=== PATIENT | male | born 1955 | race American Indian/Alaskan Native ===

== ENCOUNTER 2017-01-11 20:34 | Observation (INO) | payer MEDICAID, OTHER ==
[2017-01-11 20:34] VITALS: BMI 24.3
[2017-01-11] MEDS ORDERED: Aspirin 325 mg EC Tablets PO STA (21:20)
[2017-01-11] MEDS ORDERED: Albuterol-Ipratrop 3 mg / 0.5 (3 ml) UD IH STA (21:21)
[2017-01-11] MEDS ORDERED: Aspirin 325 mg EC Tablets PO ONE (21:30)
[2017-01-11] MEDS ORDERED: Albuterol-Ipratrop 3 mg / 0.5 (3 ml) UD ONE (21:30)
[2017-01-11 21:38] LABS: EOS # 0.3 K/uL (0.0-0.7); EOS % 5.6 % (0.0-4.0); HEMATOCRIT 49.5 % (35.0-51.0); LYMPH # 1.7 K/uL (1.0-4.3); LYMPH % 35.9 % (20.0-40.0); MEAN CELL VOLUME 97.3 fL (80.0-94.0); MEAN CORPUSCULAR HEMOGLOBIN 32.7 pg (27.0-31.0); MEAN CORPUSCULAR HGB CONC 33.7 g/dL (33.0-37.0); MEAN PLATELET VOLUME 7.7 fL (7.2-11.7); MONO # 0.4 K/uL (0.0-0.8); MONO % 9.1 % (0.0-10.0); NRBC % 0.1 % (0.0-2.0); RED CELL DISTRIBUTION WIDTH 12.3 % (11.5-14.5); WHITE BLOOD COUNT 4.7 K/uL (4.8-10.8)
[2017-01-11 21:41] LABS: INR 1.2
[2017-01-11 22:28] LABS: ALKALINE PHOSPHATASE 93 U/L (38-126); ALT/SGPT 94 U/L (21-72); AST/SGOT 103 U/L (17-59); BILIRUBIN,TOTAL 1.9 mg/dL (0.2-1.3); BLOOD UREA NITROGEN 8 mg/dL (9-20); CALCIUM 8.5 mg/dl (8.6-10.4); CARBON DIOXIDE 29 mmol/L (22-30); CHLORIDE 93 mmol/L (98-107); GFR AFRICAN-AMERICAN > 60; GLUCOSE,RANDOM 122 mg/dL (75-110); MAGNESIUM 1.5 mg/dL (1.6-2.3); POTASSIUM 4.7 mmol/L (3.6-5.2); SODIUM 130 mmol/L (132-148); TOTAL PROTEIN 8.5 g/dL (6.3-8.3)
[2017-01-11 22:32] LABS: ALB/GLOB RATIO 0.8 (1.0-2.1)
[2017-01-11] MEDS ORDERED: Magnesium Sulfate 1 gm in D5W 1 GM/100 ML BAG IVPB ONE ×2 (22:56→23:00)
--- NOTE | 2017-01-11 23:13 | C.PDOC ---
Time Seen by Provider: 01/11/17 21:10 Chief Complaint (Nursing): Chest Pain History Per: Patient Onset/Duration Of Symptoms: Hrs (1) Current Symptoms Are (Timing): Better Severity: Moderate Quality: "Pain" Associated Symptoms: Dyspnea Modifying Factors: Other Indicated Below Exacerbating Factors: Exertion Alleviating Factors: None Additional History Per: Prior Records Past Medical History Reviewed: Historical Data, Nursing Documentation, Vital Signs Vital Signs: Last Vital Signs Temp 97.6 F 01/11/17 20:47 Pulse 80 01/11/17 22:33 Resp 17 01/11/17 22:33 BP 137/86 01/11/17 22:33 Pulse Ox 94 L 01/11/17 23:14 - Medical History PMH: Asthma, CAD, COPD (ASTHMA), Emphysema, Fractures, Gall Bladder Disease, HTN , Pneumonia Surgical History: Cholecystectomy (07/29/14), Coronary Stent (2 stents) - [facility] Procedures INJECT/INFUSE NEC (06/22/13) LAPAROSCOPIC CHOLECYSTECTOMY (07/29/14) NEBULIZER THERAPY (06/22/13) OTHER OPEN UMBILICAL HERNIORRHAPHY (07/29/14) VITAL CAPACITY DETERMIN (06/22/13) Family History: States: Unknown Family Hx - Social History Hx Tobacco Use: Yes Hx Alcohol Use: Yes Hx Substance Use: Yes - Immunization History Hx Tetanus Toxoid Vaccination: Yes Hx Influenza Vaccination: Yes Hx Pneumococcal Vaccination: Yes Review Of Systems Except As Marked, All Systems Reviewed And Found Negative. Constitutional: Negative for: Fever, Weakness Cardiovascular: Positive for: Chest Pain Respiratory: Positive for: Cough, Shortness of Breath. Negative for: Hemoptysis Gastrointestinal: Positive for: Nausea. Negative for: Vomiting, Abdominal Pain Musculoskeletal: Negative for: Neck Pain, Back Pain, Leg Pain Skin: Negative for: Rash Neurological: Negative for: Weakness, Numbness, Seizures Physical Exam - Physical Exam Appears: Non-toxic, No Acute Distress Skin: Normal Color, Warm, Dry, No Rash Head: Atraumatic, Normacephalic Eye(s): bilateral: PERRL, EOMI Neck: Normal ROM, Supple Cardiovascular: Rhythm Regular Respiratory: Normal Breath Sounds, No Accessory Muscle Use Gastrointestinal/Abdominal: Soft, No Tenderness Back: No CVA Tenderness Extremity: Normal ROM, No Pedal Edema, No Calf Tenderness Neurological/Psych: Oriented x3, Normal Motor, Normal Sensation ED Course And Treatment - Laboratory Results Result Diagrams: 01/11/17 21:28 01/11/17 21:28 ECG: Interpreted By Me, Viewed By Me ECG Rhythm: Sinus Rhythm, Nonspecific Changes ECG Interpretation: No Changes From Prior Interpretation Of ECG: Q waves in inferior leads. Rate From EC O2 Sat by Pulse Oximetry: 94 Pulse Ox Interpretation: Other Interpretation Of Abnormal: borderline - Radiology CXR: Interpreted by Me, Viewed By Me CXR Interpretation: Yes: No Acute Disease - Physician Consult Information Physician Contacted: Sandra Bhagat (Cardio) Outcome Of Conversation: He will consult. Progress - Interventions Interventions:: Observation, Intravenous fluid, Oxygen - Medications Administered Oral: Aspirin Inhaled nebulized: Anticholinergic, Beta-2 agonist Intravenous: Other (Mg) - Data Reviewed Data Reviewed: Lab, Diagnostic imaging, EKG, Old records - Patient Status Patient status: Partially improved - Continuity of Care Discussed patient case with:: Patient, ED Nurse, On-call PMD-pt unassigned Discussed pt. case with cleaning validation consultant/specialty: Cardiology Disposition Discussed With : Nita Riddle Comment: She accepted pt on her service. Doctor Will See Patient In The: Hospital Counseled Patient/Family Regarding: Studies Performed, Diagnosis, Smoking Cessation - Disposition Disposition: HOSPITALIZED Disposition Time: 23:35 Condition: FAIR - Clinical Impression Clinical Impression: Chest pain, rule out acute myocardial infarction, COPD (chronic obstructive pulmonary disease), CAD (coronary artery disease)
[2017-01-12 04:23] LABS: BASO % 0.9 % (0.0-2.0); EOS # 0.4 K/uL (0.0-0.7); EOS % 8.5 % (0.0-4.0); HEMATOCRIT 45.4 % (35.0-51.0); LYMPH # 1.6 K/uL (1.0-4.3); LYMPH % 32.7 % (20.0-40.0); MEAN CELL VOLUME 96.6 fL (80.0-94.0); MEAN CORPUSCULAR HEMOGLOBIN 32.6 pg (27.0-31.0); MEAN CORPUSCULAR HGB CONC 33.7 g/dL (33.0-37.0); MEAN PLATELET VOLUME 7.4 fL (7.2-11.7); MONO # 0.5 K/uL (0.0-0.8); MONO % 10.4 % (0.0-10.0); NRBC % 0.3 % (0.0-2.0); RED CELL DISTRIBUTION WIDTH 12.3 % (11.5-14.5)
[2017-01-12 04:53] LABS: ALB/GLOB RATIO 0.8 (1.0-2.1); ALKALINE PHOSPHATASE 92 U/L (38-126); ALT/SGPT 93 U/L (21-72); AST/SGOT 82 U/L (17-59); BILIRUBIN,TOTAL 1.7 mg/dL (0.2-1.3); BLOOD UREA NITROGEN 9 mg/dL (9-20); CALCIUM 7.5 mg/dl (8.6-10.4); CARBON DIOXIDE 30 mmol/L (22-30); CHLORIDE 92 mmol/L (98-107); CHOLESTEROL 118 mg/dL (0-199); GFR AFRICAN-AMERICAN > 60; GLUCOSE,RANDOM 98 mg/dL (75-110); POTASSIUM 4.5 mmol/L (3.6-5.2); SODIUM 126 mmol/L (132-148); TOTAL PROTEIN 7.6 g/dL (6.3-8.3)
[2017-01-12 05:56] LABS: THYROID STIMULATING HORMONE 4.42 mIU/L (0.46-4.68)
--- NOTE | 2017-01-12 08:54 | RAD ---
HISTORY: SOB, CP COMPARISON: Chest x-ray performed 12/15/15 TECHNIQUE: Chest, one view. FINDINGS: LUNGS: Increased lucencies especially within the bilateral upper lung castro compatible with underlying emphysema. No focal consolidation. Please note that chest x-ray has limited sensitivity for the detection of pulmonary masses. PLEURA: No significant pleural effusion identified. No definite pneumothorax . CARDIOVASCULAR: Heart size appears within normal limits. OSSEOUS STRUCTURES: Mild degenerative changes. VISUALIZED UPPER ABDOMEN: Unremarkable. OTHER FINDINGS: None. IMPRESSION: No focal consolidation, significant pleural effusion, or definite pneumothorax identified.
--- NOTE | 2017-01-12 09:58 | US ---
HISTORY: abnormal lfts COMPARISON: CT abdomen and pelvis with contrast performed 09/12/14 TECHNIQUE: Sonographic evaluation of the abdomen. FINDINGS: LIVER: Measures 14.3 cm in sagittal dimension. Echogenic liver may be seen in setting of hepatic parenchymal disease or fatty infiltration. Echogenic lesion noted within the left hepatic lobe measures approximately 1.1 x 0.7 x 1.1 cm. The main portal vein appears patent with normal directional flow. Mild intrahepatic biliary ductal dilatation. GALLBLADDER: Cholecystectomy. COMMON BILE DUCT: Measures 8 mm. PANCREAS: Not well visualized. RIGHT KIDNEY: Measures 11.2 x 4.7 x 4.7 cm. No obstructing calculus or hydronephrosis identified. LEFT KIDNEY: Measures 10.2 x 5.5 x 5.2cm. No obstructing calculus or hydronephrosis identified. SPLEEN: Measures approximately 10.1 cm. AORTA: Limited views appear unremarkable. IVC: Limited views appear unremarkable. OTHER FINDINGS: None. IMPRESSION: Echogenic liver may be seen in setting of hepatic parenchymal disease or fatty infiltration. Indeterminate left hepatic lobe echogenic lesion measures approximately 1.1 x 0.7 x 1.1 cm. Cholecystectomy. Mild intrahepatic biliary ductal dilatation.
[2017-01-12] MEDS ORDERED: Enoxaparin 30 mg Syringe SC SCH (10:00)
--- NOTE | 2017-01-12 11:45 | CP.PCM.PN ---
Subjective - Date & Time of Evaluation Date of Evaluation: 01/12/17 Time of Evaluation: 11:00 - Subjective Subjective: H&P dictated #[id number] Objective - Vital Signs/Intake and Output Vital Signs (last 24 hours): Temp Pulse Resp BP Pulse Ox 97.6 F 82 18 140/96 H 96 01/11/17 20:47 01/12/17 09:55 01/12/17 09:55 01/12/17 10:00 01/12/17 09:55 - Medications Medications: Current Medications Aspirin (Aspirin) 325 mg PO DAILY [facility] Last Admin: 01/12/17 10:00 Dose: 325 mg Clopidogrel Bisulfate (Plavix) 75 mg PO DAILY [facility] Last Admin: 01/12/17 10:00 Dose: 75 mg Enoxaparin Sodium (Lovenox) 30 mg SC DAILY [facility] Last Admin: 01/12/17 10:00 Dose: 30 mg Metoprolol Tartrate (Lopressor) 25 mg PO BID [facility] Last Admin: 01/12/17 10:00 Dose: 25 mg - Labs Labs: 01/12/17 04:20 01/12/17 04:20 PT 13.2 SECONDS (9.7-12.2) H 01/11/17 21:28 INR 1.2 01/11/17 21:28 APTT 45 SECONDS (21-34) H 01/11/17 21:28
[2017-01-12] MEDS ORDERED: Multiple Vitamins Tab PO SCH (12:00)
[2017-01-12] MEDS: Oxymetazoline 0.05% Nasal Spray (30 ml) NS SCH ×2 (12:30→23:59)
[2017-01-12] MEDS: Sodium Chloride 0.9% 1,000 ML IV SCH (13:08)
--- NOTE | 2017-01-12 13:23 | CP.PCM.CON ---
<Lorin Herring - Last Filed: 01/12/17 13:23> History of Present Illness - History of Present Illness History of Present Illness: Gastroenterology Fellow/PGY5 Consult Note 61 year old male with history of Polysubstance abuse (alcohol, tobacco, heroin) , CAD s/p 2 stents on Aspirin/Plavix, Hypertension, and COPd presenting with shortness of breath. Patient notes feeling like his throat is tight and limiting ability to take a deep breath. Admits to associated nasal congestion, nasal pressure, nasal discharge with red-tinge, productive cough, wheezing, and chest discomfort. Admits to upper abdominal pain. Notes continued heavy alcohol intake for many years. He has never been told he had liver disease, lesions, or Hepatitis C in the past. Admits to significant unintentional weight loss confirmed on record review of approximately 40 pounds in the last year. Denies nausea, vomiting, hematemesis, constipation, diarrhea, melena, or hematochezia. No prior EGD or colonoscopy. Family- denies colon cancer Social- tobacco, heavy alcohol abuse, heroin Surgery- coronary stentsx2, cholecystectomy 07/2014, umbilical hernia repair 2014 Review of Systems - Review of Systems Review of Systems: 12-point review of systems negative except for as above Past Patient History - Infectious Disease Hx of Infectious Diseases: None - Past Medical History & Family History Past Medical History?: Yes - Past Social History Smoking Status: Heavy Smoker > 10 Cigarettes Daily - CARDIAC Hx Hypertension: Yes - PULMONARY Hx Asthma: Yes Hx Chronic Obstructive Pulmonary Disease (COPD): Yes (ASTHMA) Hx Emphysema: Yes Hx Pneumonia: Yes - NEUROLOGICAL Hx Seizures: No - HEENT Hx HEENT Problems: No - ENDOCRINE/METABOLIC Hx Endocrine Disorders: No - HEMATOLOGICAL/ONCOLOGICAL Hx Human Immunodeficiency Virus (HIV): No - INTEGUMENTARY Hx Dermatological Problems: No - MUSCULOSKELETAL/RHEUMATOLOGICAL Hx Fractures: Yes - GASTROINTESTINAL Hx Gall Bladder Disease: Yes - GENITOURINARY/GYNECOLOGICAL Hx Sexually Transmitted Disorders: No - PSYCHIATRIC Hx Substance Use: Yes - SURGICAL HISTORY Hx Cholecystectomy: Yes (07/29/14) Hx Coronary Stent: Yes (2 stents) - ANESTHESIA Hx Anesthesia: Yes Hx Anesthesia Reactions: No Hx Malignant Hyperthermia: No Meds Allergies/Adverse Reactions: Allergies Allergy/AdvReac Type Severity Reaction Status Date / Time iodine Allergy Severe SHORTNESS Verified 12/11/15 17:38 OF BREATH Penicillins Allergy RASH Verified 12/10/15 08:25 Iodinated Contrast- Oral and AdvReac Severe RASH Verified 12/11/15 17:38 IV Dye [Iodinated Contrast Media - IV Dye] - Medications Medications: Current Medications Albuterol/Ipratropium (Duoneb 3 Mg/0.5 Mg (3 Ml) Ud) 3 ml INH RQ6 [facility] Aspirin (Aspirin) 325 mg PO DAILY [facility] Last Admin: 01/12/17 10:00 Dose: 325 mg Clopidogrel Bisulfate (Plavix) 75 mg PO DAILY [facility] Last Admin: 01/12/17 10:00 Dose: 75 mg Enoxaparin Sodium (Lovenox) 30 mg SC DAILY [facility] Last Admin: 01/12/17 10:00 Dose: 30 mg Folic Acid (Folic Acid) 1 mg PO DAILY [facility] Last Admin: 01/12/17 12:30 Dose: 1 mg Sodium Chloride (Sodium Chloride 0.9%) 1,000 mls @ 100 mls/hr IV .Q10H [facility] Last Admin: 01/12/17 13:08 Dose: 100 mls/hr Lorazepam (Ativan) 0.5 mg PO Q6H PRN PRN Reason: Anxiety Metoprolol Tartrate (Lopressor) 25 mg PO BID [facility] Last Admin: 01/12/17 10:00 Dose: 25 mg Multivitamins (Hexavitamin) 1 tab PO DAILY [facility] Last Admin: 01/12/17 12:30 Dose: 1 tab Oxymetazoline HCl (Afrin 0.05%) 0 ml NS Q12H [facility] Last Admin: 01/12/17 12:30 Dose: 2 spr Thiamine HCl (Vitamin B1 Tab) 100 mg PO DAILY [facility] Last Admin: 01/12/17 12:30 Dose: 100 mg Physical Exam - Constitutional Appears: Non-toxic, No Acute Distress - Head Exam Head Exam: ATRAUMATIC, NORMOCEPHALIC - Eye Exam Eye Exam: EOMI, PERRL Pupil Exam: PERRL. absent: Miosis, Mydriatic - ENT Exam ENT Exam: Mucous Membranes Moist, Normal Oropharynx - Neck Exam Neck exam: Positive for: Full Rom, Normal Inspection - Respiratory Exam Respiratory Exam: Clear to Auscultation Bilateral. absent: Rales, Rhonchi, Wheezes - Cardiovascular Exam Cardiovascular Exam: RRR, +S1, +S2. absent: Gallop, Rubs - GI/Abdominal Exam GI & Abdominal Exam: Normal Bowel Sounds, Soft, Tenderness. absent: Distended, Firm, Guarding, Organomegaly, Pulsatile Mass, Rebound, Rigid Additional comments: mild generalized discomfort - Extremities Exam Extremities exam: Positive for: normal inspection. Negative for: pedal edema - Neurological Exam Neurological exam: Alert - Psychiatric Exam Psychiatric exam: Normal Affect, Normal Mood - Skin Skin Exam: Dry, Intact, Normal Color, Warm Results - Vital Signs Recent Vital Signs: Last Vital Signs Temp 97.6 F 01/11/17 20:47 Pulse 76 01/12/17 12:15 Resp 16 01/12/17 12:15 BP 138/89 01/12/17 12:15 Pulse Ox 100 01/12/17 12:15 - Labs Result Diagrams: 01/12/17 04:20 01/12/17 04:20 Labs: Laboratory Results - last 24 hr 01/11/17 01/11/17 01/11/17 21:28 21:28 21:28 WBC 4.7 L RBC 5.09 Hgb 16.6 D Hct 49.5 MCV 97.3 H D MCH 32.7 H MCHC 33.7 RDW 12.3 Plt Count 178 MPV 7.7 Neut % (Auto) 48.4 L Lymph % (Auto) 35.9 Pacific % (Auto) 9.1 Eos % (Auto) 5.6 H Baso % (Auto) 1.0 Neut # 2.3 Lymph # 1.7 Pacific # 0.4 Eos # 0.3 Baso # 0.0 PT 13.2 H INR 1.2 APTT 45 H Sodium 130 L Potassium 4.7 Chloride 93 L Carbon Dioxide 29 Anion Gap 13 BUN 8 L Creatinine 0.6 L Est GFR ( Amer) > 60 Est GFR (Non-Af Amer) > 60 Random Glucose 122 H Hemoglobin A1c Calcium 8.5 L Magnesium 1.5 L Total Bilirubin 1.9 H AST 103 H ALT 94 H Alkaline Phosphatase 93 Total Creatine Kinase 62 CK-MB (Mass) 1.43 Troponin I 0.0310 NT-Pro-B Natriuret Pep 375 Total Protein 8.5 H Albumin 3.8 Globulin 4.7 H Albumin/Globulin Ratio 0.8 L Triglycerides Cholesterol LDL Cholesterol Direct HDL Cholesterol TSH 3rd Generation Hepatitis A IgM Ab Hep Bs Antigen Hep Bs Antibody Hep B Core IgM Ab Hepatitis C Antibody 01/12/17 01/12/17 01/12/17 04:20 04:20 04:20 WBC 5.0 RBC 4.70 Hgb 15.3 Hct 45.4 MCV 96.6 H MCH 32.6 H MCHC 33.7 RDW 12.3 Plt Count 163 MPV 7.4 Neut % (Auto) 47.5 L Lymph % (Auto) 32.7 Pacific % (Auto) 10.4 H Eos % (Auto) 8.5 H Baso % (Auto) 0.9 Neut # 2.4 Lymph # 1.6 [place] # 0.5 Eos # 0.4 Baso # 0.0 PT INR APTT Sodium 126 L Potassium 4.5 Chloride 92 L Carbon Dioxide 30 Anion Gap 10 BUN 9 Creatinine 0.6 L Est GFR ( Amer) > 60 Est GFR (Non-Af Amer) > 60 Random Glucose 98 Hemoglobin A1c 5.8 Calcium 7.5 L Magnesium Total Bilirubin 1.7 H AST 82 H D ALT 93 H Alkaline Phosphatase 92 Total Creatine Kinase CK-MB (Mass) Troponin I 0.0290 NT-Pro-B Natriuret Pep Total Protein 7.6 Albumin 3.3 L Globulin 4.3 H Albumin/Globulin Ratio 0.8 L Triglycerides 84 Cholesterol 118 LDL Cholesterol Direct 69 HDL Cholesterol 39 TSH 3rd Generation 4.42 Hepatitis A IgM Ab Hep Bs Antigen Negative Hep Bs Antibody Hep B Core IgM Ab Hepatitis C Antibody 01/12/17 01/12/17 04:20 04:20 WBC RBC Hgb Hct MCV MCH MCHC RDW Plt Count MPV Neut % (Auto) Lymph % (Auto) [place] % (Auto) Eos % (Auto) Baso % (Auto) Neut # Lymph # [place] # Eos # Baso # PT INR APTT Sodium Potassium Chloride Carbon Dioxide Anion Gap BUN Creatinine Est GFR ( Amer) Est GFR (Non-Af Amer) Random Glucose Hemoglobin A1c Calcium Magnesium Total Bilirubin AST ALT Alkaline Phosphatase Total Creatine Kinase CK-MB (Mass) Troponin I NT-Pro-B Natriuret Pep Total Protein Albumin Globulin Albumin/Globulin Ratio Triglycerides Cholesterol LDL Cholesterol Direct HDL Cholesterol TSH 3rd Generation Hepatitis A IgM Ab Negative Hep Bs Antigen Hep Bs Antibody Negative Hep B Core IgM Ab Negative Hepatitis C Antibody Reactive Assessment & Plan - Assessment and Plan (Free Text) Assessment: 61 year old male with history of Polysubstance abuse (alcohol, tobacco, heroin) , CAD s/p 2 stents on Aspirin/Plavix, Hypertension, and COPD presenting with shortness of breath. GI consultation for elevated LFTs with Hepatitis C positive and noted 1.1x0.7x1.6cm left hepatic lesion. No prior EGD or colonoscopy. Plan: >chronic elevated LFTs since 2013 >mild intrahepatic dilatations in setting of cholecystectomy 2/2 chronic calculous cholecystitis >Hepatitis viral load pending >AFP, direct bilirubin pending >ordered CT liver triple phase protocol to further characterize hepatic lesion and rule out HCC -assess mild biliary dilatations- rule out retained stone - rule out cirrhosis >low salt diet >counselled on alcohol cessation and further insult on liver disease >further recommendations after cross sectional liver imaging >will follow clinical course <Aristeo Davila - Last Filed: 01/12/17 15:25> Meds - Medications Medications: Current Medications Albuterol/Ipratropium (Duoneb 3 Mg/0.5 Mg (3 Ml) Ud) 3 ml INH RQ6 [facility] Last Admin: 01/12/17 14:55 Dose: 3 ml Aspirin (Aspirin) 325 mg PO DAILY [facility] Last Admin: 01/12/17 10:00 Dose: 325 mg Clopidogrel Bisulfate (Plavix) 75 mg PO DAILY [facility] Last Admin: 01/12/17 10:00 Dose: 75 mg Enoxaparin Sodium (Lovenox) 30 mg SC DAILY [facility] Last Admin: 01/12/17 10:00 Dose: 30 mg Folic Acid (Folic Acid) 1 mg PO DAILY [facility] Last Admin: 01/12/17 12:30 Dose: 1 mg Sodium Chloride (Sodium Chloride 0.9%) 1,000 mls @ 100 mls/hr IV .Q10H [facility] Last Admin: 01/12/17 13:08 Dose: 100 mls/hr Lorazepam (Ativan) 0.5 mg PO Q6H PRN PRN Reason: Anxiety Last Admin: 01/12/17 12:30 Dose: 0.5 mg Metoprolol Tartrate (Lopressor) 25 mg PO BID [facility] Last Admin: 01/12/17 10:00 Dose: 25 mg Multivitamins (Hexavitamin) 1 tab PO DAILY [facility] Last Admin: 01/12/17 12:30 Dose: 1 tab Oxymetazoline HCl (Afrin 0.05%) 0 ml NS Q12H [facility] Last Admin: 01/12/17 12:30 Dose: 2 spr Thiamine HCl (Vitamin B1 Tab) 100 mg PO DAILY [facility] Last Admin: 01/12/17 12:30 Dose: 100 mg Results - Vital Signs Recent Vital Signs: Last Vital Signs Temp 97.6 F 01/11/17 20:47 Pulse 76 01/12/17 15:03 Resp 16 01/12/17 15:03 BP 165/94 H 01/12/17 15:03 Pulse Ox 96 01/12/17 15:03 - Labs Result Diagrams: 01/12/17 04:20 01/12/17 04:20 Labs: Laboratory Results - last 24 hr 01/11/17 01/11/17 01/11/17 21:28 21:28 21:28 WBC 4.7 L RBC 5.09 Hgb 16.6 D Hct 49.5 MCV 97.3 H D MCH 32.7 H MCHC 33.7 RDW 12.3 Plt Count 178 MPV 7.7 Neut % (Auto) 48.4 L Lymph % (Auto) 35.9 Pacific % (Auto) 9.1 Eos % (Auto) 5.6 H Baso % (Auto) 1.0 Neut # 2.3 Lymph # 1.7 [place] # 0.4 Eos # 0.3 Baso # 0.0 PT 13.2 H INR 1.2 APTT 45 H Sodium 130 L Potassium 4.7 Chloride 93 L Carbon Dioxide 29 Anion Gap 13 BUN 8 L Creatinine 0.6 L Est GFR ( Amer) > 60 Est GFR (Non-Af Amer) > 60 Random Glucose 122 H Hemoglobin A1c Calcium 8.5 L Magnesium 1.5 L Total Bilirubin 1.9 H Direct Bilirubin AST 103 H ALT 94 H Alkaline Phosphatase 93 Total Creatine Kinase 62 CK-MB (Mass) 1.43 Troponin I 0.0310 NT-Pro-B Natriuret Pep 375 Total Protein 8.5 H Albumin 3.8 Globulin 4.7 H Albumin/Globulin Ratio 0.8 L Triglycerides Cholesterol LDL Cholesterol Direct HDL Cholesterol Alpha Fetoprotein TSH 3rd Generation Hepatitis A IgM Ab Hep Bs Antigen Hep Bs Antibody Hep B Core IgM Ab Hepatitis C Antibody 01/12/17 01/12/17 01/12/17 04:20 04:20 04:20 WBC 5.0 RBC 4.70 Hgb 15.3 Hct 45.4 MCV 96.6 H MCH 32.6 H MCHC 33.7 RDW 12.3 Plt Count 163 MPV 7.4 Neut % (Auto) 47.5 L Lymph % (Auto) 32.7 [place] % (Auto) 10.4 H Eos % (Auto) 8.5 H Baso % (Auto) 0.9 Neut # 2.4 Lymph # 1.6 [place] # 0.5 Eos # 0.4 Baso # 0.0 PT INR APTT Sodium 126 L Potassium 4.5 Chloride 92 L Carbon Dioxide 30 Anion Gap 10 BUN 9 Creatinine 0.6 L Est GFR ( Amer) > 60 Est GFR (Non-Af Amer) > 60 Random Glucose 98 Hemoglobin A1c 5.8 Calcium 7.5 L Magnesium Total Bilirubin 1.7 H Direct Bilirubin AST 82 H D ALT 93 H Alkaline Phosphatase 92 Total Creatine Kinase CK-MB (Mass) Troponin I 0.0290 NT-Pro-B Natriuret Pep Total Protein 7.6 Albumin 3.3 L Globulin 4.3 H Albumin/Globulin Ratio 0.8 L Triglycerides 84 Cholesterol 118 LDL Cholesterol Direct 69 HDL Cholesterol 39 Alpha Fetoprotein TSH 3rd Generation 4.42 Hepatitis A IgM Ab Hep Bs Antigen Negative Hep Bs Antibody Hep B Core IgM Ab Hepatitis C Antibody 01/12/17 01/12/17 01/12/17 04:20 04:20 13:10 WBC RBC Hgb Hct MCV MCH MCHC RDW Plt Count MPV Neut % (Auto) Lymph % (Auto) [place] % (Auto) Eos % (Auto) Baso % (Auto) Neut # Lymph # [place] # Eos # Baso # PT INR APTT Sodium Potassium Chloride Carbon Dioxide Anion Gap BUN Creatinine Est GFR ( Amer) Est GFR (Non-Af Amer) Random Glucose Hemoglobin A1c Calcium Magnesium Total Bilirubin Direct Bilirubin AST ALT Alkaline Phosphatase Total Creatine Kinase CK-MB (Mass) Troponin I NT-Pro-B Natriuret Pep Total Protein Albumin Globulin Albumin/Globulin Ratio Triglycerides Cholesterol LDL Cholesterol Direct HDL Cholesterol Alpha Fetoprotein 21.0 H TSH 3rd Generation Hepatitis A IgM Ab Negative Hep Bs Antigen Hep Bs Antibody Negative Hep B Core IgM Ab Negative Hepatitis C Antibody Reactive 01/12/17 01/12/17 13:36 13:46 WBC RBC Hgb Hct MCV MCH MCHC RDW Plt Count MPV Neut % (Auto) Lymph % (Auto) [place] % (Auto) Eos % (Auto) Baso % (Auto) Neut # Lymph # [place] # Eos # Baso # PT INR APTT Sodium Potassium Chloride Carbon Dioxide Anion Gap BUN Creatinine Est GFR ( Amer) Est GFR (Non-Af Amer) Random Glucose Hemoglobin A1c Calcium Magnesium Total Bilirubin Direct Bilirubin 0.8 H AST ALT Alkaline Phosphatase Total Creatine Kinase CK-MB (Mass) Troponin I 0.0350 NT-Pro-B Natriuret Pep Total Protein Albumin Globulin Albumin/Globulin Ratio Triglycerides Cholesterol LDL Cholesterol Direct HDL Cholesterol Alpha Fetoprotein TSH 3rd Generation Hepatitis A IgM Ab Hep Bs Antigen Hep Bs Antibody Hep B Core IgM Ab Hepatitis C Antibody Attending/Attestation - Attestation I have personally seen and examined this patient.: Yes I have fully participated in the care of the patient.: Yes I have reviewed all pertinent clinical information: Yes Notes (Text): 01/12/17 15:22 61 year old male h/o Etoh abuse, heroin abuse, CAD s/p stents, HTN, COPD admitted with SOB/COPD, found to have HCV, elevated LFTs, and liver lesion. 1. Elevated LFTs 2. Chronic hepatitis c 3. Liver lesion Plan: -recommend triple phase ct to evaluate for HCC and possible cirrhosis due to HCV -elevated AFP 21 -no signs of decompensated liver disease at this time -supportive care -check HCV Gentotype/viral load -eval for other chronic liver diseases
[2017-01-12] MEDS: Albuterol-Ipratrop 3 mg / 0.5 (3 ml) UD INH SCH (14:55)
[2017-01-12 17:02] LABS: URINE BILIRUBIN NEGATIVE (NEGATIVE); URINE BLOOD NEGATIVE (NEGATIVE); URINE COLOR Yellow (YELLOW); URINE GLUCOSE (UA) NORMAL (Normal); URINE KETONE NEGATIVE (NEGATIVE); URINE LEUKOCYTE ESTERASE NEG Leu/uL (Negative); URINE PROTEIN NEGATIVE (NEGATIVE)
--- NOTE | 2017-01-12 19:50 | CP.PCM.CON ---
Past Patient History - Infectious Disease Hx of Infectious Diseases: None - Past Medical History & Family History Past Medical History?: Yes - Past Social History Smoking Status: Heavy Smoker > 10 Cigarettes Daily - CARDIAC Hx Hypertension: Yes - PULMONARY Hx Asthma: Yes Hx Chronic Obstructive Pulmonary Disease (COPD): Yes (ASTHMA) Hx Emphysema: Yes Hx Pneumonia: Yes - NEUROLOGICAL Hx Seizures: No - HEENT Hx HEENT Problems: No - ENDOCRINE/METABOLIC Hx Endocrine Disorders: No - HEMATOLOGICAL/ONCOLOGICAL Hx Human Immunodeficiency Virus (HIV): No - INTEGUMENTARY Hx Dermatological Problems: No - MUSCULOSKELETAL/RHEUMATOLOGICAL Hx Fractures: Yes - GASTROINTESTINAL Hx Gall Bladder Disease: Yes - GENITOURINARY/GYNECOLOGICAL Hx Sexually Transmitted Disorders: No - PSYCHIATRIC Hx Substance Use: Yes - SURGICAL HISTORY Hx Cholecystectomy: Yes (07/29/14) Hx Coronary Stent: Yes (2 stents) - ANESTHESIA Hx Anesthesia: Yes Hx Anesthesia Reactions: No Hx Malignant Hyperthermia: No Meds Allergies/Adverse Reactions: Allergies Allergy/AdvReac Type Severity Reaction Status Date / Time iodine Allergy Severe SHORTNESS Verified 12/11/15 17:38 OF BREATH Penicillins Allergy RASH Verified 12/10/15 08:25 Iodinated Contrast- Oral and AdvReac Severe RASH Verified 12/11/15 17:38 IV Dye [Iodinated Contrast Media - IV Dye] - Medications Medications: Current Medications Albuterol/Ipratropium (Duoneb 3 Mg/0.5 Mg (3 Ml) Ud) 3 ml INH RQ6 [facility] Last Admin: 01/12/17 14:55 Dose: 3 ml Aspirin (Aspirin) 325 mg PO DAILY [facility] Last Admin: 01/12/17 10:00 Dose: 325 mg Clopidogrel Bisulfate (Plavix) 75 mg PO DAILY [facility] Last Admin: 01/12/17 10:00 Dose: 75 mg Enoxaparin Sodium (Lovenox) 30 mg SC DAILY [facility] Last Admin: 01/12/17 10:00 Dose: 30 mg Folic Acid (Folic Acid) 1 mg PO DAILY [facility] Last Admin: 01/12/17 12:30 Dose: 1 mg Sodium Chloride (Sodium Chloride 0.9%) 1,000 mls @ 100 mls/hr IV .Q10H [facility] Last Admin: 01/12/17 13:08 Dose: 100 mls/hr Lorazepam (Ativan) 0.5 mg PO Q6H PRN PRN Reason: Anxiety Last Admin: 01/12/17 18:26 Dose: 0.5 mg Metoprolol Tartrate (Lopressor) 25 mg PO BID [facility] Last Admin: 01/12/17 18:00 Dose: 25 mg Multivitamins (Hexavitamin) 1 tab PO DAILY [facility] Last Admin: 01/12/17 12:30 Dose: 1 tab Oxymetazoline HCl (Afrin 0.05%) 0 ml NS Q12H [facility] Last Admin: 01/12/17 12:30 Dose: 2 spr Thiamine HCl (Vitamin B1 Tab) 100 mg PO DAILY [facility] Last Admin: 01/12/17 12:30 Dose: 100 mg Results - Vital Signs Recent Vital Signs: Last Vital Signs Temp 97.6 F 01/11/17 20:47 Pulse 84 01/12/17 18:29 Resp 18 01/12/17 18:29 BP 158/107 H 01/12/17 18:29 Pulse Ox 96 01/12/17 18:29 - Labs Result Diagrams: 01/12/17 04:20 01/12/17 04:20 Labs: Laboratory Results - last 24 hr 01/11/17 01/11/17 01/11/17 21:28 21:28 21:28 WBC 4.7 L RBC 5.09 Hgb 16.6 D Hct 49.5 MCV 97.3 H D MCH 32.7 H MCHC 33.7 RDW 12.3 Plt Count 178 MPV 7.7 Neut % (Auto) 48.4 L Lymph % (Auto) 35.9 [place] % (Auto) 9.1 Eos % (Auto) 5.6 H Baso % (Auto) 1.0 Neut # 2.3 Lymph # 1.7 [place] # 0.4 Eos # 0.3 Baso # 0.0 PT 13.2 H INR 1.2 APTT 45 H Sodium 130 L Potassium 4.7 Chloride 93 L Carbon Dioxide 29 Anion Gap 13 BUN 8 L Creatinine 0.6 L Est GFR ( Amer) > 60 Est GFR (Non-Af Amer) > 60 Random Glucose 122 H Hemoglobin A1c Calcium 8.5 L Magnesium 1.5 L Total Bilirubin 1.9 H Direct Bilirubin AST 103 H ALT 94 H Alkaline Phosphatase 93 Total Creatine Kinase 62 CK-MB (Mass) 1.43 Troponin I 0.0310 NT-Pro-B Natriuret Pep 375 Total Protein 8.5 H Albumin 3.8 Globulin 4.7 H Albumin/Globulin Ratio 0.8 L Triglycerides Cholesterol LDL Cholesterol Direct HDL Cholesterol Alpha Fetoprotein TSH 3rd Generation Urine Color Urine Clarity Urine pH Ur Specific Williams Urine Protein Urine Glucose (UA) Urine Ketones Urine Blood Urine Nitrate Urine Bilirubin Urine Urobilinogen Ur Leukocyte Esterase Urine Opiates Screen Urine Methadone Screen Ur Barbiturates Screen Ur Phencyclidine Scrn Ur Amphetamines Screen U Benzodiazepines Scrn U Oth Cocaine Metabols U Cannabinoids Screen Hepatitis A IgM Ab Hep Bs Antigen Hep Bs Antibody Hep B Core IgM Ab Hepatitis C Antibody 01/12/17 01/12/17 01/12/17 04:20 04:20 04:20 WBC 5.0 RBC 4.70 Hgb 15.3 Hct 45.4 MCV 96.6 H MCH 32.6 H MCHC 33.7 RDW 12.3 Plt Count 163 MPV 7.4 Neut % (Auto) 47.5 L Lymph % (Auto) 32.7 [place] % (Auto) 10.4 H Eos % (Auto) 8.5 H Baso % (Auto) 0.9 Neut # 2.4 Lymph # 1.6 [place] # 0.5 Eos # 0.4 Baso # 0.0 PT INR APTT Sodium 126 L Potassium 4.5 Chloride 92 L Carbon Dioxide 30 Anion Gap 10 BUN 9 Creatinine 0.6 L Est GFR ( Amer) > 60 Est GFR (Non-Af Amer) > 60 Random Glucose 98 Hemoglobin A1c 5.8 Calcium 7.5 L Magnesium Total Bilirubin 1.7 H Direct Bilirubin AST 82 H D ALT 93 H Alkaline Phosphatase 92 Total Creatine Kinase CK-MB (Mass) Troponin I 0.0290 NT-Pro-B Natriuret Pep Total Protein 7.6 Albumin 3.3 L Globulin 4.3 H Albumin/Globulin Ratio 0.8 L Triglycerides 84 Cholesterol 118 LDL Cholesterol Direct 69 HDL Cholesterol 39 Alpha Fetoprotein TSH 3rd Generation 4.42 Urine Color Urine Clarity Urine pH Ur Specific Williams Urine Protein Urine Glucose (UA) Urine Ketones Urine Blood Urine Nitrate Urine Bilirubin Urine Urobilinogen Ur Leukocyte Esterase Urine Opiates Screen Urine Methadone Screen Ur Barbiturates Screen Ur Phencyclidine Scrn Ur Amphetamines Screen U Benzodiazepines Scrn U Oth Cocaine Metabols U Cannabinoids Screen Hepatitis A IgM Ab Hep Bs Antigen Negative Hep Bs Antibody Hep B Core IgM Ab Hepatitis C Antibody 01/12/17 01/12/17 01/12/17 04:20 04:20 13:10 WBC RBC Hgb Hct MCV MCH MCHC RDW Plt Count MPV Neut % (Auto) Lymph % (Auto) [place] % (Auto) Eos % (Auto) Baso % (Auto) Neut # Lymph # [place] # Eos # Baso # PT INR APTT Sodium Potassium Chloride Carbon Dioxide Anion Gap BUN Creatinine Est GFR ( Amer) Est GFR (Non-Af Amer) Random Glucose Hemoglobin A1c Calcium Magnesium Total Bilirubin Direct Bilirubin AST ALT Alkaline Phosphatase Total Creatine Kinase CK-MB (Mass) Troponin I NT-Pro-B Natriuret Pep Total Protein Albumin Globulin Albumin/Globulin Ratio Triglycerides Cholesterol LDL Cholesterol Direct HDL Cholesterol Alpha Fetoprotein 21.0 H TSH 3rd Generation Urine Color Urine Clarity Urine pH Ur Specific Williams Urine Protein Urine Glucose (UA) Urine Ketones Urine Blood Urine Nitrate Urine Bilirubin Urine Urobilinogen Ur Leukocyte Esterase Urine Opiates Screen Urine Methadone Screen Ur Barbiturates Screen Ur Phencyclidine Scrn Ur Amphetamines Screen U Benzodiazepines Scrn U Oth Cocaine Metabols U Cannabinoids Screen Hepatitis A IgM Ab Negative Hep Bs Antigen Hep Bs Antibody Negative Hep B Core IgM Ab Negative Hepatitis C Antibody Reactive 01/12/17 01/12/17 01/12/17 13:36 13:46 16:54 WBC RBC Hgb Hct MCV MCH MCHC RDW Plt Count MPV Neut % (Auto) Lymph % (Auto) [place] % (Auto) Eos % (Auto) Baso % (Auto) Neut # Lymph # [place] # Eos # Baso # PT INR APTT Sodium Potassium Chloride Carbon Dioxide Anion Gap BUN Creatinine Est GFR ( Amer) Est GFR (Non-Af Amer) Random Glucose Hemoglobin A1c Calcium Magnesium Total Bilirubin Direct Bilirubin 0.8 H AST ALT Alkaline Phosphatase Total Creatine Kinase CK-MB (Mass) Troponin I 0.0350 NT-Pro-B Natriuret Pep Total Protein Albumin Globulin Albumin/Globulin Ratio Triglycerides Cholesterol LDL Cholesterol Direct HDL Cholesterol Alpha Fetoprotein TSH 3rd Generation Urine Color Yellow Urine Clarity Clear Urine pH 7.0 Ur Specific Williams 1.010 Urine Protein Negative Urine Glucose (UA) Normal Urine Ketones Negative Urine Blood Negative Urine Nitrate Negative Urine Bilirubin Negative Urine Urobilinogen 4.0 Ur Leukocyte Esterase Neg Urine Opiates Screen Urine Methadone Screen Ur Barbiturates Screen Ur Phencyclidine Scrn Ur Amphetamines Screen U Benzodiazepines Scrn U Oth Cocaine Metabols U Cannabinoids Screen Hepatitis A IgM Ab Hep Bs Antigen Hep Bs Antibody Hep B Core IgM Ab Hepatitis C Antibody 01/12/17 16:54 WBC RBC Hgb Hct MCV MCH MCHC RDW Plt Count MPV Neut % (Auto) Lymph % (Auto) [place] % (Auto) Eos % (Auto) Baso % (Auto) Neut # Lymph # [place] # Eos # Baso # PT INR APTT Sodium Potassium Chloride Carbon Dioxide Anion Gap BUN Creatinine Est GFR ( Amer) Est GFR (Non-Af Amer) Random Glucose Hemoglobin A1c Calcium Magnesium Total Bilirubin Direct Bilirubin AST ALT Alkaline Phosphatase Total Creatine Kinase CK-MB (Mass) Troponin I NT-Pro-B Natriuret Pep Total Protein Albumin Globulin Albumin/Globulin Ratio Triglycerides Cholesterol LDL Cholesterol Direct HDL Cholesterol Alpha Fetoprotein TSH 3rd Generation Urine Color Urine Clarity Urine pH Ur Specific [place] Urine Protein Urine Glucose (UA) Urine Ketones Urine Blood Urine Nitrate Urine Bilirubin Urine Urobilinogen Ur Leukocyte Esterase Urine Opiates Screen Positive H Urine Methadone Screen Negative Ur Barbiturates Screen Negative Ur Phencyclidine Scrn Negative Ur Amphetamines Screen Negative U Benzodiazepines Scrn Negative U Oth Cocaine Metabols Negative U Cannabinoids Screen Negative Hepatitis A IgM Ab Hep Bs Antigen Hep Bs Antibody Hep B Core IgM Ab Hepatitis C Antibody Assessment & Plan (1) CAD (coronary artery disease) Assessment and Plan: As per patient history of CAD, S/P [place] in 1998. But he is still using drugs. Will consider obtaining records, Continue current cardiac care. Status: Acute (2) Chest pain, rule out acute myocardial infarction Assessment and Plan: Troponin non-significant. Recent use of cocaine. Need behaviour modification along with smoking cessation. Status: Acute
--- NOTE | 2017-01-12 22:44 | HP ---
CHIEF COMPLAINT: Chest pain, started yesterday while watching TV. HISTORY OF PRESENT ILLNESS: Mr. Vera is a 61-year-old male with past medical history of emphysema, hypertension, CAD, [place] [facility] [place] [facility] [place] up with any doctors, came into the ED for sudden onset of retrosternal squeezing pain, radiating to the left arm, associated with shortness of breath, diaphoresis and nausea. The pain is squeezing in nature, 7/10, radiating to the neck and left hand. Pain is intermittent; when coming, it is severe. Patient still complaining of similar episode on and off, complaining of shortness of breath and stuffy nose. Denied any headache, dizziness. Denied any abdominal pain, diarrhea or constipation. Denied any urinary complaints. Denied any leg pains or leg cramps. Denied any other neurologic symptoms. PAST MEDICAL HISTORY: As described, emphysema, COPD, hypertension, CAD, status post stent placement. PAST SURGICAL HISTORY: Cholecystectomy about 2 years ago and [place] [facility] [facility] [place] FAMILY HISTORY: Coronary artery disease in sister, mother has history of hypertension. PERSONAL HISTORY: He is single, lives alone, not having any children, unemployed, living on disability. SOCIAL HISTORY: He is a smoker, smoking 1 pack per day for the past 20 years, now in the process of cutting down and smoking only 4 cigarettes a day for the past few months. Admits to drinking alcohol and heroin abuse sniffing. Denies any IVDA. ALLERGIES: HE IS ALLERGIC TO PENICILLIN. HOME MEDICATIONS: Include Lopressor 25 mg p.o. daily, Plavix 75 mg p.o. daily and albuterol inhaler. REVIEW OF SYSTEMS: As described in history of present illness. All other systems reviewed and were found to be negative. PHYSICAL EXAMINATION: GENERAL: Middle-aged male, lying in bed, in no acute distress. VITAL SIGNS: Blood pressure 140/96, pulse 82, respiration 18, temperature 97.6, O2 sat is 96% on room air. HEENT: Pupils equal, round and reactive to light and accommodation. Extraocular muscles intact. No icterus, no pallor, no rub. There is no pharyngeal congestion. NECK: Supple. No JVD, no thyromegaly. CHEST: Moving equally bilaterally on respiration. LUNGS: Bilateral vesicular breath sounds, occasional wheezing. No rhonchi. CARDIOVASCULAR SYSTEM: S1, S2 present, regular. ABDOMEN: Soft, nontender. Bowel sounds present. No guarding, no rigidity, no rebound tenderness noted. CENTRAL NERVOUS SYSTEM: Alert, awake, oriented x3. No focal deficits noted. EXTREMITIES: No edema. Palpable peripheral pulses. LABORATORY DATA: Labs done from ED, WBC 4.7, hemoglobin 16.6, hematocrit 49.5, platelets 178. Sodium 130, potassium 4.7, chloride 93, bicarb 29, BUN 8, creatinine 0.6, glucose 122, hemoglobin A1c 5.8, calcium 8.5, magnesium 1.5, bilirubin 1.9, AST 103, ALT 94, alkaline phosphatase 93. CPK is 62. Cardiac enzymes x2 negative. ProBNP 375. Triglycerides 84, cholesterol 118, LDL 69, HDL 39. TSH 4.42. Hepatitis C antibody reactive, hepatitis B negative. UA and drug screen not done. Echocardiogram was done, results pending. Chest x-ray , no focal consolidation, effusion or pneumothorax noted. Ultrasound of the abdomen, echogenic liver, indeterminate left hepatic lobe echogenic lesion measures approximately 1.1 x 1.1 x 0.7, cholecystectomy, mild intrahepatic biliary ductal dilatation. EKG consistent with normal sinus rhythm with Q waves in II, III, aVF and poor R wave progression. No acute ST-T changes noted. Rate is 79 beats per minute. ASSESSMENT: Middle-aged male with history of hypertension, emphysema, coronary artery disease, status post stent placement and status post cholecystectomy, admitted for sudden onset of chest pain with associated symptoms of shortness of breath, nausea, diaphoresis and radiation to the left arm. Patient is being admitted for further management and patient is found to be having low sodium, hepatitis C positive and abnormal liver function test and abnormal ultrasound. 1. Chest pain in a patient with multiple risk factors and noncompliance, rule out restenosis of the stent. 2. History of coronary artery disease. 3. History of hypertension. 4. History of emphysema, chronic obstructive pulmonary disease. 5. Mild hyponatremia. 6. Abnormal liver function tests with abnormal ultrasound. 7. Hepatitis C positive. PLAN: Patient is being admitted to telemetry. We will do serial cardiac enzymes, serial EKGs. We will check echocardiogram. We will obtain Cardiology evaluation with Dr. Bhagat. Continue with aspirin, metoprolol and Plavix. We will follow up with echo results, monitor electrolytes, repeat sodium and magnesium level. Monitor liver function test, slightly better than yesterday. For abnormal ultrasound, we will repeat CT scan of the abdomen and pelvis with contrast and we will obtain GI evaluation. We will get hepatitis C viral RNA, check alpha-fetoprotein level, check tox screen and UA. We will give nebulizer treatments and Nasonex for stuffiness of the nose. We will add further recommendation as his clinical course progresses. Nita Riddle MD
[2017-01-12 23:20] VITALS: RESP 20
[2017-01-13] MEDS: Oxymetazoline 0.05% Nasal Spray (30 ml) NS SCH (00:03)
[2017-01-13] MEDS: Albuterol-Ipratrop 3 mg / 0.5 (3 ml) UD INH SCH ×2 (01:15→08:15)
[2017-01-13] MEDS: Sodium Chloride 0.9% 1,000 ML IV SCH (02:21)
[2017-01-13 04:54] VITALS: O2SAT 96
--- NOTE | 2017-01-13 07:46 | CP.PCM.PN ---
<Amn Marcoa - Last Filed: 01/13/17 08:50> Subjective - Date & Time of Evaluation Date of Evaluation: 01/13/17 Time of Evaluation: 07:00 - Subjective Subjective: GI Fellow PGY4 Progress Note Pt seen and evaluated at beside, pt is complaining that he is withdrawing from alcohol and needs stronger medication. Pt also reports nausea and vomiting, last drink was prior to arrival. Pt drinks heavily and is unable to quantify. He does confirm 40lb unintentional weight loss. ROS: A 12pt ROS was negative except as above. Objective - Vital Signs/Intake and Output Vital Signs (last 24 hours): Temp Pulse Resp BP Pulse Ox 98.0 F 110 H 20 176/92 H 96 01/13/17 04:00 01/13/17 04:31 01/13/17 04:00 01/13/17 04:00 01/13/17 04:00 Intake and Output: 01/13/17 01/13/17 06:59 18:59 Output Total 450 Balance -450 - Medications Medications: Current Medications Albuterol/Ipratropium (Duoneb 3 Mg/0.5 Mg (3 Ml) Ud) 3 ml INH RQ6 [facility] Last Admin: 01/13/17 01:15 Dose: Not Given Aspirin (Aspirin) 325 mg PO DAILY [facility] Last Admin: 01/12/17 10:00 Dose: 325 mg Clopidogrel Bisulfate (Plavix) 75 mg PO DAILY [facility] Last Admin: 01/12/17 10:00 Dose: 75 mg Enoxaparin Sodium (Lovenox) 30 mg SC DAILY [facility] Last Admin: 01/12/17 10:00 Dose: 30 mg Folic Acid (Folic Acid) 1 mg PO DAILY [facility] Last Admin: 01/12/17 12:30 Dose: 1 mg Sodium Chloride (Sodium Chloride 0.9%) 1,000 mls @ 100 mls/hr IV .Q10H [facility] Last Admin: 01/13/17 02:21 Dose: 100 mls/hr Lorazepam (Ativan) 0.5 mg PO Q6H PRN PRN Reason: Anxiety Last Admin: 01/13/17 05:47 Dose: 0.5 mg Metoprolol Tartrate (Lopressor) 25 mg PO BID [facility] Last Admin: 01/12/17 18:00 Dose: 25 mg Multivitamins (Hexavitamin) 1 tab PO DAILY [facility] Last Admin: 01/12/17 12:30 Dose: 1 tab Oxymetazoline HCl (Afrin 0.05%) 0 ml NS Q12H [facility] Last Admin: 01/13/17 00:03 Dose: Not Given Thiamine HCl (Vitamin B1 Tab) 100 mg PO DAILY [facility] Last Admin: 01/12/17 12:30 Dose: 100 mg - Labs Labs: 01/12/17 04:20 01/12/17 04:20 PT 13.2 SECONDS (9.7-12.2) H 01/11/17 21:28 INR 1.2 01/11/17 21:28 APTT 45 SECONDS (21-34) H 01/11/17 21:28 - Constitutional Appears: Non-toxic, No Acute Distress, Unkempt - Head Exam Head Exam: ATRAUMATIC, NORMAL INSPECTION, NORMOCEPHALIC - Eye Exam Eye Exam: EOMI, Normal appearance, PERRL Pupil Exam: PERRL - ENT Exam ENT Exam: Mucous Membranes Moist, Normal Exam - Neck Exam Neck Exam: Full ROM, Normal Inspection - Respiratory Exam Respiratory Exam: Clear to Ausculation Bilateral, NORMAL BREATHING PATTERN - Cardiovascular Exam Cardiovascular Exam: Tachycardia - GI/Abdominal Exam GI & Abdominal Exam: Soft, Tenderness, Normal Bowel Sounds. absent: Distended, Firm, Guarding, Organomegaly - Rectal Exam Rectal Exam: Deferred - Extremities Exam Extremities Exam: Normal Inspection - Back Exam Back Exam: NORMAL INSPECTION - Neurological Exam Neurological Exam: Alert, Awake, Oriented x3 - Psychiatric Exam Psychiatric exam: Agitated - Skin Skin Exam: Dry, Intact, Normal Color, Warm Assessment and Plan - Assessment and Plan (Free Text) Assessment: This is a 61 year old male with history of Polysubstance abuse (alcohol, tobacco , heroin), CAD s/p 2 stents on Aspirin/Plavix, Hypertension, and COPD presenting with shortness of breath. GI consultation for elevated LFTs with Hepatitis C positive left hepatic lesion. No prior EGD or colonoscopy. 1. Hep C positive 2. Left hepatic lesion on Abd US 1.1x0.7x1.6cm, AFP 21 3. Transaminitis 4. Unintentional weightloss 5. Alcohol abuse and withdrawal Plan: -Will order CT Liver triple phase to evaluate for HCC and possible cirrhosis due to HCV -Concern for HCC with elevated AFP 21, weightloss of 40lbs, and lesion on Abd US -No signs of decompensated liver disease -Supportive care for alcohol withdrawal -Positive HCV Ab check HCV Genotype/viral load -Will make further recommendations after cross sectional liver imaging -Will follow clinical course <Bjorn Tyler - Last Filed: 01/13/17 09:10> Objective - Vital Signs/Intake and Output Vital Signs (last 24 hours): Temp Pulse Resp BP Pulse Ox 98.4 F 107 H 20 141/108 H 96 01/13/17 07:00 01/13/17 07:00 01/13/17 07:00 01/13/17 07:00 01/13/17 07:00 Intake and Output: 01/13/17 01/13/17 06:59 18:59 Output Total 450 Balance -450 - Labs Labs: 01/12/17 04:20 01/12/17 04:20 PT 13.2 SECONDS (9.7-12.2) H 01/11/17 21:28 INR 1.2 01/11/17 21:28 APTT 45 SECONDS (21-34) H 01/11/17 21:28 Attending/Attestation - Attestation I have personally seen and examined this patient.: Yes I have fully participated in the care of the patient.: Yes I have reviewed all pertinent clinical information, including history, physical exam and plan: Yes Notes (Text): 01/13/17 09:07 Patient agitated this morning, presumably secondary to ETOH withdrawal. He denies abdominal pain, fever/chills. Asking to leave hospital. Review of vitals from today shows elevated BP, tachycardia. Polysubstance abuse CAD s/p stent HTN COPD HCV with liver lesion present on abdominal US - Diet as tolerated - Continue to monitor LFTs, monitor for signs of ETOH withdrawal - Elevated AFP noted, awaiting additional HCV studies including viral load and genotype - Patient requires triple phase liver CT to rule out HCC given appearance of mass lesion on US. He is listed as being allergic to contrast dye, though has had CT imaging with contrast performed in past. If needed, patient can be premedicated with prednisone/benadryl prior to imaging being performed. - Patient would benefit from elective outpatient endoscopic evaluation, will continue to monitor clinical course
--- NOTE | 2017-01-13 08:20 | PCM.PSYCH ---
Initial Psychiatric Evaluation - Initial Psychiatric Evaluation History of Present Illness and Precipitating Events: Went to see the pt, but pt already had signed AMA and left. Current Medications: Active Medications Generic Name Dose Route Start Last Admin Trade Name Freq PRN Reason Stop Dose Admin Albuterol/Ipratropium 3 ml 01/12/17 14:00 01/13/17 08:15 Duoneb 3 Mg/0.5 Mg (3 Ml) Ud INH Not Given RQ6 [facility] Aspirin 325 mg 01/12/17 10:00 01/12/17 10:00 Aspirin PO 325 mg DAILY [facility] Administration Clopidogrel Bisulfate 75 mg 01/12/17 10:00 01/12/17 10:00 Plavix PO 75 mg DAILY [facility] Administration Enoxaparin Sodium 30 mg 01/12/17 10:00 01/12/17 10:00 Lovenox SC 30 mg DAILY [facility] Administration Folic Acid 1 mg 01/12/17 12:00 01/12/17 12:30 Folic Acid PO 1 mg DAILY [facility] Administration Sodium Chloride 1,000 mls @ 100 mls/hr 01/12/17 12:00 01/13/17 02:21 Sodium Chloride 0.9% IV 100 mls/hr .Q10H [facility] Administration Lorazepam 0.5 mg 01/12/17 11:53 01/13/17 05:47 Ativan PO 0.5 mg Q6H PRN Administration Anxiety Metoprolol Tartrate 25 mg 01/12/17 10:00 01/12/17 18:00 Lopressor PO 25 mg BID [facility] Administration Multivitamins 1 tab 01/12/17 12:00 01/12/17 12:30 Hexavitamin PO 1 tab DAILY [facility] Administration Oxymetazoline HCl 0 ml 01/12/17 12:00 01/13/17 00:03 Afrin 0.05% NS Not Given Q12H [facility] Thiamine HCl 100 mg 01/12/17 12:00 01/12/17 12:30 Vitamin B1 Tab PO 100 mg DAILY [facility] Administration Past Psychiatric History - Past Psychiatric History Pertinent Medical Hx (Current Medical&Sleep Prob, Allergies): Allergies Allergy/AdvReac Type Severity Reaction Status Date / Time iodine Allergy Severe SHORTNESS Verified 12/11/15 17:38 OF BREATH Penicillins Allergy RASH Verified 12/10/15 08:25 Iodinated Contrast- Oral and AdvReac Severe RASH Verified 12/11/15 17:38 IV Dye [Iodinated Contrast Media - IV Dye] Clopidogrel [Plavix] 75 mg PO DAILY 06/22/13 Metoprolol Tartrate [Lopressor] 25 mg PO DAILY 02/26/15 Albuterol HFA [Ventolin HFA 90 mcg/actuation (8 g)] 2 puff IH [id number] PRN
[2017-01-13 08:44] VITALS: BP 141/108; TEMP 98.4
[2017-01-13] MEDS ORDERED: Influenza Vaccine 60 mcg/0.5 mL SYR (4YR UP) IM ONE (10:00)
--- NOTE | 2017-01-13 10:34 | CARD ---
APPROVED REPORT EKG Measurement Heart [id number] <Conclusion> Normal sinus rhythm Possible Left atrial enlargement Possible Inferior infarct, age undetermined Abnormal ECG
--- NOTE | 2017-01-13 12:06 | CARD ---
APPROVED REPORT EXAM: Two-dimensional and M-mode echocardiogram with Doppler and color Doppler. Other Information Quality : GoodRhythm : INDICATION Atrial Fibrillation Cardiac Disease: CAD Chest Pain COPD 2D DIMENSIONS IVSd0.6 (0.7-1.1cm)LVDd5.4 (3.9-5.9cm) PWd0.6 (0.7-1.1cm)LVDs4.9 (2.5-4.0cm) FS (%) 8.0 %LVEF (%)17.5 (>50%) M-Mode DIMENSIONS Left Atrium (MM)3.19 (2.5-4.0cm)Aortic Root3.16 (2.2-3.7cm) Aortic Cusp Exc.2.45 (1.5-2.0cm) Mitral Valve MV E Dukthhwc59.4cm/sMV A Nmsjhogf88.8cm/sE/A ratio0.7 TDI E/Lateral E'0.0E/Medial E'0.0 Tricuspid Valve TR Peak Tmlozwxa347kp/sTR Peak Gr.37rcJqYKMH27ibRs LEFT VENTRICLE The left ventricle is normal size. There is normal left ventricular wall thickness. Left ventricle systolic function is severely impaired with Ejection Fraction is <20% consistent with ischemic cardiomyopathy There is global hypokinesis of the left ventricle. Severely hypokinetic anteroseptal wall consistent with CAD. The left ventricular diastolic function is abnormal.Transmitral Doppler flow pattern is Grade I-abnormal relaxation pattern. No left ventricle thrombus noted on this study. RIGHT VENTRICLE The right ventricle is normal size. The right ventricular systolic function is normal. ATRIA The left atrium size is normal. The right atrium size is normal. AORTIC VALVE The aortic valve is mildly thickened. The aortic valve is trileaflet. No aortic regurgitation is present. There is no aortic valvular stenosis. There is no aortic valvular vegetation. MITRAL VALVE Mitral annular calcification is mild to moderate. There is no evidence of mitral valve prolapse. There is no mitral valve stenosis. There is no mitral valve regurgitation noted. TRICUSPID VALVE The tricuspid valve is normal in structure. There is trace tricuspid regurgitation. Right ventricular systolic pressure is estimated at less than 30 mmHg. There is no pulmonary hypertension. There is no tricuspid valve prolapse or vegetation. There is no tricuspid valve stenosis. PULMONIC VALVE The pulmonary valve is normal in structure. There is no pulmonic valvular regurgitation. There is no pulmonic valvular stenosis. GREAT VESSELS The aortic root is normal in size. The IVC is normal in size and collapses >50% with inspiration. PERICARDIAL EFFUSION There is no pericardial effusion. There is no pleural effusion. <Conclusion> The left ventricle is normal size. There is global hypokinesis of the left ventricle with everely hypokinetic anteroseptal wall consistent with CAD. Left ventricle systolic function is severely impaired with Ejection Fraction is <20% consistent with ischemic cardiomyopathy The left ventricular diastolic function is abnormal.Transmitral Doppler flow pattern is Grade I-abnormal relaxation pattern. The right ventricle is normal size. The right ventricular systolic function is normal. The left atrium size is normal. The right atrium size is normal. There is trace tricuspid regurgitation.
[2017-01-13 13:40] VITALS: PULSE 113
[2017-01-15] MEDS ORDERED: Influenza Vaccine 60 mcg/0.5 mL SYR (4YR UP) IM ONE (10:00)
== END 2017-01-13 08:54 | disposition left against medical advice (07) ==
LOC: C.ER 20:34 → C.9E 23:37 → C.6T 01-12 18:25
PROVIDERS: ADMIT Internal Medicine; ATTEND Internal Medicine
DX: R07.9 Chest pain, unspecified (principal); E87.1 Hypo-osmolality and hyponatremia; I10 Essential (primary) hypertension; F17.210 Nicotine dependence, cigarettes, uncomplicated; I25.2 Old myocardial infarction; I25.10 Atherosclerotic heart disease of native coronary artery without angina pectoris; J43.9 Emphysema, unspecified; Z91.19 Patient's noncompliance with other medical treatment and regimen; Z95.5 Presence of coronary angioplasty implant and graft; F11.10 Opioid abuse, uncomplicated; B18.2 Chronic viral hepatitis C; Z91.041 Radiographic dye allergy status; Z79.02 Long term (current) use of antithrombotics/antiplatelets; R63.4 Abnormal weight loss
CPT/HCPCS: 71010; 76700; 80053; 80061; 80324; 80345; 80346; 80349; 80353; 80358; 80361; 81001; 82105; 82248; 82948; 83036; 83735; 83880; 83992; 84443; 84484; 85025; 85610; 85730; 86705; 86706; 86709; 86803; 87340; 87521; 93005; 93306; 96365; 96372; 99285; G0378; J1650; J3475; J7040

== ENCOUNTER 2017-01-15 22:44 | Emergency (ER) | payer OTHER ==
[2017-01-15 22:44] VITALS: BMI 24.3
--- NOTE | 2017-01-15 23:03 | C.PDOC ---
History Of Present Illness Patient presents to the ER with a complaint of intermittent chest pain for the past 1.5 days. Patient was seen here a few days ago for a similar complaint and had a negative work up. Patient reports he continued to smoke and use drugs which include heroin and cocaine. Denies nausea, vomiting, or SOB. Time Seen by Provider: 01/15/17 23:03 Chief Complaint (Nursing): Chest Pain History Per: Patient History/Exam Limitations: no limitations Onset/Duration Of Symptoms: Days, Intermittent Episodes Current Symptoms Are (Timing): Still Present Severity: Moderate Pain Scale Rating Of: 4 Quality: "Pain" Associated Symptoms: denies: Nausea, Dyspnea, Diaphoresis, Syncope Modifying Factors: None Exacerbating Factors: None Alleviating Factors: None Recent travel outside of the [place]: No Past Medical History Reviewed: Historical Data, Nursing Documentation, Vital Signs Vital Signs: Last Vital Signs Temp 98 F 01/16/17 00:50 Pulse 98 H 01/16/17 00:50 Resp 16 01/16/17 00:50 BP 140/80 01/16/17 00:50 Pulse Ox 96 01/16/17 00:50 - Medical History PMH: Asthma, CAD, COPD (ASTHMA), Emphysema, Fractures, Gall Bladder Disease, HTN , Pneumonia Surgical History: Cholecystectomy (07/29/14), Coronary Stent (2 stents) - [facility] Procedures INJECT/INFUSE NEC (06/22/13) LAPAROSCOPIC CHOLECYSTECTOMY (07/29/14) NEBULIZER THERAPY (06/22/13) OTHER OPEN UMBILICAL HERNIORRHAPHY (07/29/14) VITAL CAPACITY DETERMIN (06/22/13) Family History: States: No Known Family Hx - Social History Hx Tobacco Use: Yes Hx Alcohol Use: Yes Hx Substance Use: Yes - Immunization History Hx Tetanus Toxoid Vaccination: Yes Hx Influenza Vaccination: Yes Hx Pneumococcal Vaccination: Yes Review Of Systems Cardiovascular: Positive for: Chest Pain Respiratory: Negative for: Shortness of Breath Gastrointestinal: Negative for: Nausea, Vomiting Physical Exam - Physical Exam Appears: Non-toxic, Other (Moderate discomfort) Skin: Warm, Dry Head: Normacephalic Oral Mucosa: Moist Chest: Symmetrical, No Tenderness Cardiovascular: Rhythm Regular Respiratory: No Rales, No Rhonchi, No Wheezing Gastrointestinal/Abdominal: Soft, Tenderness (Mild mid epigastric), No Guarding , No Rebound Extremity: Other (No track terry) Neurological/Psych: Oriented x3 ED Course And Treatment - Laboratory Results Result Diagrams: 01/15/17 23:21 01/15/17 23:21 ECG: Interpreted By Me, Viewed By Me ECG Rhythm: Sinus Rhythm (101), Nonspecific Changes Pulse Ox Interpretation: Normal - Radiology CXR: Interpreted by Me, Viewed By Me CXR Interpretation: No: Infiltrates, Fracture, Pnemothorax Progress Note: EKG, blood work, CXR, and urinalysis ordered. Aspirin and protonix administered. Medical Decision Making Medical Decision Making: I considered the following diagnoses: acute coronary syndrome, pulmonary embolism, lower respiratory infection, aortic dissection/aneurysm, pneumothorax , pericarditis, esophagitis/GERD, zoster and esophageal rupture but found them to be unlikely based on the history, physical exam, and diagnostics. My conclusions regarding the unlikely diagnoses were based on: the absence of significant EKG abnormalities, the lack of suggestive x-ray findings, the absence of significant abnormalities on cardiac monitoring, the absence of asymmetric pulses. Pt feels fine, chest pain free and wants to go home Upon provider reevaluation patient is feeling better, is medically stable, and requires no further treatment in the ED at this time. Patient will be discharged home . Counseling was provided and all questions were answered regarding diagnosis and need for follow up with the referred clinic. There is agreement to discharge plan. Return if symptoms persist or worsen. Disposition Counseled Patient/Family Regarding: Studies Performed, Diagnosis, Need For Followup, Smoking Cessation - Disposition Referrals: [facility] [Outside] [facility] [Outside] Disposition: HOME/ ROUTINE Disposition Time: 23:03 Condition: FAIR Additional Instructions: Please return if symptom recur Instructions: Chest Pain (DC), Polysubstance Abuse (ED) Forms: [employer] (Maltese) - Clinical Impression Clinical Impression: Chest pain, Substance abuse - Scribe Statement The provider has reviewed the documentation as recorded by the Scribe Brad De Santiago All medical record entries made by the Scribe were at my direction and personally dictated by me. I have reviewed the chart and agree that the record accurately reflects my personal performance of the history, physical exam, medical decision making, and the department course for this patient. I have also personally directed, reviewed, and agree with the discharge instructions and disposition.
[2017-01-15] MEDS ORDERED: Aspirin 325 mg EC Tablets PO STA (23:04)
[2017-01-15 23:28] LABS: INR 1.2
[2017-01-15 23:31] LABS: BASO # 0.1 K/uL (0.0-0.2); BASO % 0.9 % (0.0-2.0); EOS # 0.2 K/uL (0.0-0.7); EOS % 3.5 % (0.0-4.0); HEMATOCRIT 39.1 % (35.0-51.0); LYMPH # 1.7 K/uL (1.0-4.3); LYMPH % 26.4 % (20.0-40.0); MEAN CELL VOLUME 96.2 fL (80.0-94.0); MEAN CORPUSCULAR HEMOGLOBIN 33.5 pg (27.0-31.0); MEAN CORPUSCULAR HGB CONC 34.8 g/dL (33.0-37.0); MEAN PLATELET VOLUME 7.9 fL (7.2-11.7); MONO # 0.9 K/uL (0.0-0.8); NRBC % 0.5 % (0.0-2.0); RED CELL DISTRIBUTION WIDTH 12.6 % (11.5-14.5); WHITE BLOOD COUNT 6.6 K/uL (4.8-10.8)
[2017-01-15 23:40] LABS: ALB/GLOB RATIO 1.1 (1.0-2.1); ALCOHOL SERUM < 10 mg/dl (0-10); ALKALINE PHOSPHATASE 88 U/L (38-126); ALT/SGPT 98 U/L (21-72); AST/SGOT 107 U/L (17-59); BILIRUBIN,TOTAL 1.2 mg/dL (0.2-1.3); BLOOD UREA NITROGEN 12 mg/dL (9-20); CALCIUM 7.9 mg/dl (8.6-10.4); CARBON DIOXIDE 26 mmol/L (22-30); CHLORIDE 96 mmol/L (98-107); GFR AFRICAN-AMERICAN > 60; GLUCOSE,RANDOM 115 mg/dL (75-110); POTASSIUM 3.9 mmol/L (3.6-5.2); SODIUM 131 mmol/L (132-148); TOTAL PROTEIN 6.5 g/dL (6.3-8.3)
[2017-01-16 00:51] VITALS: BP 140/80; PULSE 98; RESP 16; TEMP 98; O2SAT 96
--- NOTE | 2017-01-16 06:54 | RAD ---
PROCEDURE: CHEST RADIOGRAPH, 1 VIEW HISTORY: chest pain COMPARISON: 01/11/2017 FINDINGS: LUNGS: Biapical pleural thickening with upper lobe granulomatous changes. Mild right hilar prominence. Please note that chest x-ray has limited sensitivity for the detection of pulmonary masses. Nodular density extending in the right midlung zone from the right hilar region may represent prominent vasculature. Clinical correlation. PLEURA: No pneumothorax or pleural fluid seen. CARDIOVASCULAR: Normal. OSSEOUS STRUCTURES: No significant abnormalities. VISUALIZED UPPER ABDOMEN: Normal. OTHER FINDINGS: None. IMPRESSION: Biapical pleural thickening with upper lobe granulomatous changes. Mild right hilar prominence. Please note that chest x-ray has limited sensitivity for the detection of pulmonary masses. Nodular density extending in the right midlung zone from the right hilar region may represent prominent vasculature. Clinical correlation.
--- NOTE | 2017-01-16 21:43 | CARD ---
APPROVED REPORT EKG Measurement Heart [id number] WI [id number] <Conclusion> Sinus tachycardia Possible Left atrial enlargement Possible Inferior infarct, age undetermined ST & T wave abnormality, consider lateral ischemia Abnormal ECG
== END 2017-01-16 01:32 | disposition home or self-care (01) ==
LOC: C.ER 22:44
DX: R07.9 Chest pain, unspecified (principal); F19.10 Other psychoactive substance abuse, uncomplicated; I10 Essential (primary) hypertension; I25.10 Atherosclerotic heart disease of native coronary artery without angina pectoris; J44.9 Chronic obstructive pulmonary disease, unspecified; Z87.891 Personal history of nicotine dependence
CPT/HCPCS: 71010; 80053; 80320; 84484; 85025; 85610; 85730; 93005; 96374; 99284; C9113

== ENCOUNTER 2018-03-17 01:09 | Emergency (ER) | payer OTHER ==
[2018-03-17 01:10] VITALS: BMI 24.3
[2018-03-17] MEDS ORDERED: Albuterol-Ipratrop 3 mg / 0.5 (3 ml) UD ONE ×2 (01:24→01:59)
[2018-03-17] MEDS ORDERED: Albuterol-Ipratrop 3 mg / 0.5 (3 ml) UD INH STA (01:46)
[2018-03-17] MEDS ORDERED: Magnesium Sulfate 1 gm in D5W 1 GM/100 ML BAG IVPB ONE ×2 (02:00→04:00)
[2018-03-17 02:02] LABS: EOS # 0.2 K/uL (0.0-0.7); EOS % 5.4 % (0.0-4.0); HEMOGLOBIN 13.2 g/dL (12.0-18.0); LYMPH # 1.1 K/uL (1.0-4.3); LYMPH % 26.6 % (20.0-40.0); MEAN CELL VOLUME 85.5 fL (80.0-94.0); MEAN CORPUSCULAR HEMOGLOBIN 28.7 pg (27.0-31.0); MEAN CORPUSCULAR HGB CONC 33.6 g/dL (33.0-37.0); MEAN PLATELET VOLUME 7.8 fL (7.2-11.7); MONO # 0.7 K/uL (0.0-0.8); MONO % 17.4 % (0.0-10.0); NEUT % 49.6 % (50.0-75.0); NRBC % 0.2 % (0.0-2.0); RBC 4.6 Mil/uL (4.40-5.90); RED CELL DISTRIBUTION WIDTH 15.1 % (11.5-14.5)
[2018-03-17] MEDS: Magnesium Sulfate 1 gm in D5W 1 GM/100 ML BAG IVPB SCH ×2 (02:03→04:00)
[2018-03-17 02:43] LABS: ALB/GLOB RATIO 1.1 (1.0-2.1); ALBUMIN 3.5 g/dL (3.5-5.0); ALT/SGPT 55 U/L (21-72); AST/SGOT 71 U/L (17-59); BLOOD UREA NITROGEN 11 mg/dL (9-20); CALCIUM 8.1 mg/dl (8.6-10.4); GFR NON-AFRICAN AMERICAN > 60
[2018-03-17 02:55] LABS: B-TYPE NATRIURETIC PEPTIDE 91.8 pg/mL (0-900)
--- NOTE | 2018-03-17 05:32 | C.PDOC ---
History Of Present Illness 62 year old male with PMHx of asthma presents to the ED c/o asthma symptoms for the past couple of days. Patient reports he had his flu shot this year. Patient denies fever, chills, cough, CP, recent travel, sick contacts. Time Seen by Provider: 03/17/18 01:37 Chief Complaint (Nursing): Shortness Of Breath History Per: Patient History/Exam Limitations: no limitations Onset/Duration Of Symptoms: Days Current Symptoms Are (Timing): Still Present Initiating Event: Upper Respiratory Illness Quality: "Pain" Current Respiratory Medications: See Home Med List Recent travel outside of the [place]: No Additional History Per: Patient Past Medical History Reviewed: Historical Data, Nursing Documentation, Vital Signs Vital Signs: Last Vital Signs Temp 99.5 F 03/17/18 01:23 Pulse 95 H 03/17/18 02:54 Resp 15 03/17/18 02:54 BP 119/71 03/17/18 02:54 Pulse Ox 96 03/17/18 02:54 - Medical History PMH: Asthma, Atrial Fibrillation, CAD, COPD (ASTHMA), Emphysema, Fractures, Gall Bladder Disease, HTN, Pneumonia Denies: HIV, Seizures, Sexually Transmitted Disease Surgical History: Cholecystectomy (07/29/14), Coronary Stent (2 stents) - [facility] Procedures INJECT/INFUSE NEC (06/22/13) LAPAROSCOPIC CHOLECYSTECTOMY (07/29/14) NEBULIZER THERAPY (06/22/13) OTHER OPEN UMBILICAL HERNIORRHAPHY (07/29/14) VITAL CAPACITY DETERMIN (06/22/13) Family History: States: Unknown Family Hx - Social History Hx Tobacco Use: Yes Hx Alcohol Use: No Hx Substance Use: No - Immunization History Hx Tetanus Toxoid Vaccination: Yes Hx Influenza Vaccination: Yes Hx Pneumococcal Vaccination: Yes Review Of Systems Constitutional: Negative for: Fever, Chills Cardiovascular: Negative for: Chest Pain, Palpitations Respiratory: Positive for: Cough, Shortness of Breath. Negative for: Sputum Gastrointestinal: Negative for: Nausea, Vomiting, Abdominal Pain Skin: Negative for: Rash Neurological: Negative for: Weakness, Numbness, Headache Physical Exam - Physical Exam Appears: Non-toxic, No Acute Distress Skin: Normal Color, Warm, Dry Head: Atraumatic, Normacephalic Eye(s): bilateral: Normal Inspection Neck: Normal ROM, Supple Chest: Symmetrical Cardiovascular: Rhythm Regular Respiratory: No Rales, No Rhonchi, Wheezing (mild expiratory ) Gastrointestinal/Abdominal: Soft, No Tenderness, No Guarding, No Rebound Extremity: Normal ROM, No Tenderness, No Swelling Neurological/Psych: Oriented x3, Normal Speech, Normal Cognition Gait: Steady ED Course And Treatment - Laboratory Results Result Diagrams: 03/17/18 01:57 03/17/18 02:25 Lab Results: Troponin I < 0.0120 ng/mL (0.00-0.120) 03/17/18 02:25 NT-Pro-B Natriuret Pep 91.8 pg/mL (0-900) 03/17/18 02:25 Total Bilirubin 0.8 mg/dL (0.2-1.3) 03/17/18 02:25 AST 71 U/L (17-59) H D 03/17/18 02:25 ALT 55 U/L (21-72) 03/17/18 02:25 Alkaline Phosphatase 145 U/L (38-126) H D 03/17/18 02:25 Total Protein 6.7 g/dL (6.3-8.3) 03/17/18 02:25 Albumin 3.5 g/dL (3.5-5.0) 03/17/18 02:25 Globulin 3.3 gm/dL (2.2-3.9) 03/17/18 02:25 Albumin/Globulin Ratio 1.1 (1.0-2.1) 03/17/18 02:25 ECG: Interpreted By Me, Viewed By Me ECG Rhythm: Sinus Tachycardia Rate From EC (BPM) O2 Sat by Pulse Oximetry: 96 (On RA) Pulse Ox Interpretation: Normal Medical Decision Making Medical Decision Making: Plan: * EKG * Labs * CXR * Aspirin 325 mg PO * Duoneb * Solumedrol 125 mg IVP * Influenza A B Patient reports improvement after the medications were administered and will be D/C home. Patient is advised to follow up with PMD in 2 days. Disposition - Disposition Referrals: Magdalena Leyva MD [Staff Provider] - Disposition: HOME/ ROUTINE Disposition Time: 04:30 Condition: IMPROVED Additional Instructions: RISSA WALLER, thank you for letting us take care of you today. The emergency medical care you received today was directed at your acute symptoms. If you were prescribed any medication, please fill it and take as directed. It may take several days for your symptoms to resolve. Return to the Emergency Department if your symptoms worsen, do not improve, or if you have any other problems. Please contact your doctor or call one of the physicians/clinics you have been referred to that are listed on the Patient Visit Information form that is included in your discharge packet. Bring any paperwork you were given at discharge with you along with any medications you are taking to your follow up visit. Our treatment cannot replace ongoing medical care by a primary care provider outside of the emergency department. Thank you for allowing the [facility] team to be part of your care today. Follow up with your primary care doctor in 2-3 days for re-evaluation and further management. Prescriptions: predniSONE [Prednisone] 40 mg PO DAILY #10 tab Instructions: Asthma, Adult (DC) Forms: [email or web address] (Swedish) - Clinical Impression Clinical Impression: Asthma exacerbation - Scribe Statement The provider has reviewed the documentation as recorded by the Scribe Jeffrey Perkins All medical record entries made by the Scribe were at my direction and personally dictated by me. I have reviewed the chart and agree that the record accurately reflects my personal performance of the history, physical exam, medical decision making, and the department course for this patient. I have also personally directed, reviewed, and agree with the discharge instructions and disposition.
[2018-03-17 06:49] VITALS: BP 126/76; PULSE 91; RESP 18; TEMP 98; O2SAT 98
--- NOTE | 2018-03-17 10:04 | RAD ---
Date of service: 03/17/2018 HISTORY: SOB COMPARISON: Portable chest 01/15/2017. FINDINGS: LUNGS: No active pulmonary disease. PLEURA: No significant pleural effusion identified, no pneumothorax apparent. CARDIOVASCULAR: Calcific atherosclerotic changes are seen related to the thoracic aorta. Normal cardiac size. Interval CABG changes are identified including median sternotomy and multiple mediastinal surgical clips. No pulmonary vascular congestion. OSSEOUS STRUCTURES: No significant abnormalities. VISUALIZED UPPER ABDOMEN: Surgical clips noted right upper quadrant abdomen. OTHER FINDINGS: None. IMPRESSION: Post CABG changes now identified. No acute cardiopulmonary disease appreciable in the interval.
--- NOTE | 2018-03-19 10:03 | CARD ---
APPROVED REPORT Date of service: 03/17/2018 EKG Measurement Heart [id number] [place] [id number] <Conclusion> Sinus tachycardia with premature atrial complexes Possible Left atrial enlargement Left ventricular hypertrophy with repolarization abnormality Cannot rule out Inferior infarct, age undetermined Abnormal ECG
== END 2018-03-17 07:20 | disposition home or self-care (01) ==
LOC: C.ER 01:09
DX: J45.901 Unspecified asthma with (acute) exacerbation (principal); Z87.891 Personal history of nicotine dependence
CPT/HCPCS: 71045; 80053; 82948; 83880; 84484; 85025; 87040; 87804; 93005; 94640; 96374; 96375; 99285; J2930; J3475